=== PATIENT | male | born 1985 | race African-American/Black ===

== ENCOUNTER 2016-05-23 18:06 | Emergency (ER) ==
[2016-05-23 18:08] VITALS: BP 127/80
[2016-05-23] MEDS ORDERED: DECADRON IM ONE (18:35)
[2016-05-23] MEDS ORDERED: DUONEB (A & A) INH ONE (18:35)
--- NOTE | 2016-05-23 18:42 | PROVIDER DOCUMENTATION ---
HPI-Respiratory General - General Chief Complaint: Asthma Attack Stated Complaint: ASTHMA ATTACK Time Seen by Provider: 05/23/16 18:19 Source: patient Allergies/Adverse Reactions: Patient Allergies Allergy/AdvReac Type Severity Reaction Status Date / Time No Known Allergies Allergy Verified 05/23/16 18:20 Home Medications: Home Medication List Medication Instructions Recorded Confirmed Last Taken Type Albuterol Sulfate Inhaler 2 puff INH Q6H PRN PRN 05/23/16 05/23/16 Unknown History [Ventolin Hfa] Albuterol Sulfate Inhaler 2 puff INH Q6H PRN PRN #1 inhaler 05/23/16 Unknown Rx [Ventolin Hfa] Albuterol [Albuterol Neb] 2.5 mg INH [id number] 05/23/16 05/23/16 Unknown History Prednisone 20 mg PO DAILY #15 tablet 05/23/16 Unknown Rx - History of Present Illness-Resp Nature of Presenting Problem: 30 y/o BM c/o wheezing x 1 day. Pt states that he has been out in the cold all day and reports exacerbation of his asthma. States started at 7 AM, but didn't want to come to the ED. States no other sxs other than stress today. States hungry. Review of Systems - Adult - REVIEW OF SYSTEMS - ADULT Constitutional: reports: no symptoms reported. denies: chills, fever Eyes: reports: no symptoms reported. denies: blurred vision, double vision Ears, Nose, Mouth & Throat: reports: no symptoms reported. denies: ear pain, nose pain Cardiovascular: reports: no symptoms reported. denies: chest pain, palpitations Respiratory: reports: see HPI, shortness of breath, wheezing. denies: cough Gastrointestinal: reports: no symptoms reported. denies: abdominal pain, nausea , vomiting Genitourinary: reports: no symptoms reported. denies: dysuria, frequency Musculoskeletal: reports: no symptoms reported. denies: joint pain, joint swelling Integumentary: reports: no symptoms reported. denies: nail changes, rash Neurological: reports: no symptoms reported. denies: numbness, paresthesia Psychiatric: reports: no symptoms reported Endocrine: reports: no symptoms reported. denies: cold intolerance, heat intolerance Hematologic/Lymphatic: reports: no symptoms reported. denies: easy bruising, prolonged bleeding Allergic/Immunologic: reports: no symptoms reported All Other Systems: Reviewed and Negative Past History - Adult - PAST MEDICAL HISTORY-ADULT Review of Records: reports: Nursing Assessment Review, Medications Reviewed - SOCIAL HISTORY Smoking: cigarettes Alcohol Use Frequency: 5-6 times a week Living Situation: homeless Physical Exam-General - PHYSICAL EXAM-ADULT Initial Vital Signs Reviewed: Yes - CONSTITUTIONAL General Appearance: alert, mild distress - EYES Eyes: pink conjunctivae - HEAD, EARS, NOSE, MOUTH & THROAT HENMT: normocephalic/atraumatic, moist mucous membranes, pharynx normal - NECK Neck: supple, normal inspection. negative: lymphadenopathy - RESPIRATORY Respiratory: no respiratory distress, crackles, wheezing. negative: pain on inspiration, plerual rub - CARDIOVASCULAR Cardiovascular: regular rate, rhythm. negative: bradycardia, tachycardia - GASTROINTESTINAL (ABDOMEN) Abdominal Exam: normal bowel sounds - MUSCULOSKELETAL Extremity: normal gait - SKIN Integumentary: normal color, normal turgor, warm/dry - NEUROLOGIC Neurologic: negative: aphasia - PSYCHIATRIC Psych/Mental Status: normal mood/affect, normal thought content, normal thought process, oriented x 3 Progress - PLAN OF CARE/RESULTS Progress/Plan/Lab Results: Pt refused CXR. Departure - Departure Time of Disposition Order: 18:46 DIAGNOSIS: Asthma Qualifiers: Asthma severity: unspecified severity Asthma complication type: uncomplicated Qualified Code(s): J45.909 - Unspecified asthma, uncomplicated Hungry Qualifiers: Encounter type: initial encounter Qualified Code(s): T73.0XXA - Starvation, initial encounter Disposition: HOME 01 Certified Medical Emergency: Emergent Condition: Stable Additional Instructions: Take medications as directed. Follow up with PCP as needed. Find nearest homeless snf. ED Follow Up Instructions: You have been treated by a care provider in the Emergency Department. These instructions are being provided to you so you can have an understanding of how to care for yourself upon discharge. Upon discharge from the Emergency Department, you are responsible for making arrangements for follow-up care by a physician of your choice. Take all prescribed medications as directed. Return to the Emergency Department immediately for any new or worsening symptoms. You may call the Physician Referral phone number at [phone] to obtain a list of Physicians who are taking new patients. Prescriptions: Prednisone 20 mg PO DAILY #15 tablet Albuterol Sulfate Inhaler [Ventolin Hfa] 2 puff INH Q6H PRN PRN #1 inhaler PRN Reason: Shortness Of Breath [facility]: [facility] [NON-STAFF[facility] - Attestation - Physician/ VIVI Attestation Patient care was provided by Advanced Practice Provider:: Yes Advanced Practice Provider:: Barbara Lopez Advanced Practice Provider documentation review:: The Mid-level provider documentation, treatment plan and medical decision making was reviewed by the physician who agrees with all treatment and medical decision making by the MLP.
== END 2016-05-23 19:33 | disposition home or self-care (01) ==
LOC: EDBD → ED 18:06
DX: J45.909 Unspecified asthma, uncomplicated (principal); R06.2 Wheezing; R06.02 Shortness of breath; F17.210 Nicotine dependence, cigarettes, uncomplicated; Z79.899 Other long term (current) drug therapy

== ENCOUNTER 2016-10-04 09:56 | Inpatient (IN) ==
[2016-10-04] MEDS ORDERED: SOLU-MEDROL IV ONE (10:15)
[2016-10-04] MEDS ORDERED: SOLU-MEDROL ONE (10:16)
[2016-10-04 10:26] LABS: BE -0.5 mmoll (-3.0-3.0); BLOOD TYPE ARTERIAL; DRAW SITE R RADIAL; METHB 0.9 % (0.0-1.5); O2(CT) 19.5 mL/dL (15.0-23.0); PCO2(98.6) 39 mmHg (35-45); PO2(98.6) 67 mmHg (60-100); SAMPLE BLOOD; SAO2 96.7 % (95.0-100.0); THB 14.8 g/dL (11.5-17.4)
[2016-10-04 10:34] LABS: ALLEN TEST YES; MODALITY ROOM AIR
[2016-10-04] MEDS ORDERED: DUONEB (A & A) INH ONE ×2 (11:56→12:30)
--- NOTE | 2016-10-04 12:52 | Diag Imaging Result Doc PS360 ---
EXAM: CHEST-2 VIEWS - 10/04/2016 HISTORY: sob TECHNIQUE: Chest two views COMPARISON: 09/07/2016 FINDINGS: Heart size is normal. The lungs are possibly mildly hyperexpanded, similar to the previous exam, but appear clear. There is no consolidation, pleural effusion, or pneumothorax identified. IMPRESSION: Possible mildly hyperexpanded lungs. No other evidence of acute disease. Electronically signed by Crispin Zhao 10/04/2016 12:49 PM
[2016-10-04] MEDS ORDERED: MAGNESIUM SULFATE 1 GM/D5W 1 GM/100 ML IVPB IV ONE (13:25)
[2016-10-04] MEDS ORDERED: MAGNESIUM SULFATE 1 GM/D5W 1 GM/100 ML IVPB ONE (13:25)
[2016-10-04 15:51] LABS: BE -0.2 mmoll (-3.0-3.0); BLOOD TYPE ARTERIAL; DRAW SITE R RADIAL; METHB 1.3 % (0.0-1.5); O2(CT) 20.1 mL/dL (15.0-23.0); PCO2(98.6) 37 mmHg (35-45); PO2(98.6) 68 mmHg (60-100); SAMPLE BLOOD; SAO2 97.9 % (95.0-100.0); THB 15.1 g/dL (11.5-17.4); pH(98.6) 7.42 (7.35-7.45)
[2016-10-04 15:53] LABS: ALLEN TEST YES; MODALITY ROOM AIR
[2016-10-04] MEDS ORDERED: TYLENOL PO PRN (16:16)
[2016-10-04] MEDS ORDERED: DUONEB (A & A) INH PRN (16:20)
[2016-10-04 16:24] LABS: MANUAL DIFF NEEDED? NO
[2016-10-04 16:41] LABS: BASO% 0.3 % (0.0-0.8); EOS# 0.37 X1000 (0.0-0.7); EOS% 3.9 % (0.0-10.0); HEMATOCRIT 45.2 % (42.0-52.0); HEMOGLOBIN 15.6 g/dL (14.0-18.0); IMM GRAN# 0.02 X1000 (0.0-0.04); IMM GRAN% 0.2 % (0.0-0.5); LYMPH# 1.48 X1000 (1.2-3.4); LYMPH% 15.5 % (20.5-51.1); MCH 30.1 PG (27-31); MCHC 34.5 g/dL (33-37); MCV 87.3 FL (81-99); MONO# 1.08 X1000 (0.11-0.59); MONO% 11.3 % (1.7-9.3); NEUT% 68.8 % (42.2-75.2); PLT 226 X1000 (130-400); RBC 5.18 XMIL (4.7-6.1)
[2016-10-04 16:48] LABS: AGAP 15; BUN 16 mg/dL (8-22); CALCIUM 9.4 mg/dL (8.8-10.2); CHLORIDE 100 mmol/L (98-107); COSMO 276; POTASSIUM 3.6 mmol/L (3.5-5.1); SODIUM 138 mmol/L (136-145); TCO2 24 mmol/L (25-35)
[2016-10-04] MEDS: SOLU-MEDROL IV SCH (18:11)
[2016-10-04] MEDS: LOVENOX SUBQ SCH (18:12)
[2016-10-04] MEDS: DUONEB (A & A) INH SCH ×2 (19:07→22:50)
--- NOTE | 2016-10-04 19:39 | HISTORY AND PHYSICAL ---
CHIEF COMPLAINT: Shortness of breath. HISTORY OF PRESENT ILLNESS: A 30-year-old male with a past medical history of asthma and eczema, came to the emergency department with a chief complaint of shortness of breath, that started yesterday in the morning, associated with cough, chills and subjective fever. Also as per the patient, he has been having loose stools, but that only happened yesterday 5 times, but not today. He states that he used albuterol at home, but the symptoms were about the same. He decided to come to the emergency department because of worsening of his symptoms. PAST MEDICAL HISTORY: Asthma and eczema. PAST SURGICAL HISTORY: None. PAST FAMILY HISTORY: Grandmother with coronary artery disease. PAST SOCIAL HISTORY: He is a smoker, apparently he smokes just 2 cigarettes per day since age 12. He drinks socially once a month. No drugs. He used to work as a cook. He is still single. DRUG ALLERGIES: None. HOME MEDICATIONS: Albuterol inhaler and nebulizer. No blood transfusions before. PHYSICAL EXAMINATION: VITAL SIGNS: Temperature 98.4 degrees, pulse 86, respiratory rate 19, O2 saturation 96% on 2 L of nasal cannula. HEENT: Head normocephalic. No trauma. PERRLA. NECK: Supple. No JVD. No masses. Central trachea. CHEST: Decreased breath sounds globally with scattered crackles and wheezing. Expiratory wheezes. ABDOMEN: Soft, nontender, nondistended. No hepatosplenomegaly. EXTREMITIES: No edema. No clubbing. No cyanosis. NEUROLOGICAL: The patient is alert and oriented x3. No focal deficits. LABORATORY: Pending lab work. ASSESSMENT AND PLAN: 1. Asthma exacerbation. He received multiple breathing treatments and steroids, but he is still coughing and having shortness of breath. He seems to be in mild to moderate respiratory distress. I will start this patient on scheduled breathing treatment and steroids. 2. Tobacco abuse. This patient has been highly advised against tobacco use. I will continue with daily cessation education. 3. Deep vein thrombosis prophylaxis with Lovenox. cc: Chuck Schneider MD
[2016-10-05] MEDS: DUONEB (A & A) INH SCH ×5 (03:01→19:07)
[2016-10-05] MEDS: SOLU-MEDROL IV SCH ×4 (03:04→16:32)
[2016-10-05 05:42] LABS: BE 1.5 mmoll (-3.0-3.0); BLOOD TYPE ARTERIAL; DRAW SITE R RADIAL; METHB 0.9 % (0.0-1.5); O2(CT) 16.6 mL/dL (15.0-23.0); PCO2(98.6) 30 mmHg (35-45); PO2(98.6) 190 mmHg (60-100); SAMPLE BLOOD; SAO2 99.6 % (95.0-100.0); THB 11.8 g/dL (11.5-17.4); pH(98.6) 7.51 (7.35-7.45)
[2016-10-05 05:43] LABS: ALLEN TEST YES; MODALITY ROOM AIR
[2016-10-05 07:06] LABS: BASO% 0.1 % (0.0-0.8); HEMATOCRIT 40.3 % (42.0-52.0); HEMOGLOBIN 13.9 g/dL (14.0-18.0); IMM GRAN# 0.01 X1000 (0.0-0.04); IMM GRAN% 0.1 % (0.0-0.5); LYMPH# 0.61 X1000 (1.2-3.4); LYMPH% 7.1 % (20.5-51.1); MANUAL DIFF NEEDED? YES; MCH 29.7 PG (27-31); MCHC 34.5 g/dL (33-37); MCV 86.1 FL (81-99); MONO# 0.39 X1000 (0.11-0.59); MONO% 4.5 % (1.7-9.3); MPV 11.9 FL (7.4-10.4); NEUT% 88.2 % (42.2-75.2); PLT 230 X1000 (130-400); RBC 4.68 XMIL (4.7-6.1)
[2016-10-05 08:00] LABS: AGAP 13; BUN 15 mg/dL (8-22); CALCIUM 9.8 mg/dL (8.8-10.2); CHLORIDE 102 mmol/L (98-107); COSMO 278; POTASSIUM 4.3 mmol/L (3.5-5.1); SODIUM 138 mmol/L (136-145); TCO2 23 mmol/L (25-35)
[2016-10-05 08:27] LABS: BANDS 1 % (0-1); LYMPHS 10 % (21-51); MONO 1 % (1-9)
--- NOTE | 2016-10-05 15:12 | PROGRESS NOTE ---
DATE: 10/05/2016 SUBJECTIVE: She is complaining of less shortness of breath. She is becoming resistive to care and belligerent at times. She either does not answer or she mumbles answers to all staff. OBJECTIVE: Vital Signs: Blood pressure is 112/69, with a heart rate of 96, respirations are 16, temperature is 98.5 degrees oral, with room air saturations of 97-100%. Cardiovascular: Regular rate and rhythm. S1 and S2 are appreciated. Pulmonary: She does have some scattered wheezes throughout with no increased work of breathing noted. Gastrointestinal: Abdomen is soft, nontender, nondistended with bowel sounds in all 4 quadrants. Extremities: No clubbing, cyanosis, or edema. Calves are nontender. Pulses are palpable x4. Neurologic: She is alert and oriented x3. Labs: WBC is 8.6, with hemoglobin 13.9, hematocrit 40.3, and platelets of 230,000. Sodium is 138, potassium 4.3, BUN 15, creatinine 0.9, with a glucose of 119. ASSESSMENT AND PLAN: Asthma exacerbation. We will continue with current breathing treatments and steroids. We will use Lovenox for deep venous thrombosis prophylaxis. Dictated by MYNOR Tinoco for Hany Julian MD cc: MYNOR Tinoco MD
[2016-10-05] MEDS: LOVENOX SUBQ SCH (16:32)
[2016-10-05] MEDS ORDERED: RESTORIL PO PRN (21:50)
[2016-10-06] MEDS: DUONEB (A & A) INH SCH ×7 (00:08→23:32)
[2016-10-06] MEDS: SOLU-MEDROL IV SCH ×3 (00:28→16:44)
[2016-10-06 06:59] LABS: MCHC 34.1 g/dL (33-37); MPV 12.2 FL (7.4-10.4); RBC 4.66 XMIL (4.7-6.1)
[2016-10-06 07:14] LABS: AGAP 11; ALKALINE PHOSPHATASE 42 U/L (32-122); BUN 12 mg/dL (8-22); CALCIUM 9.9 mg/dL (8.8-10.2); CHLORIDE 104 mmol/L (98-107); COSMO 278; GOT 14 U/L (10-34); GPT 15 U/L (10-44); POTASSIUM 4.2 mmol/L (3.5-5.1); SODIUM 139 mmol/L (136-145); TCO2 24 mmol/L (25-35); TOTAL BILIRUBIN < 0.15 mg/dL (0.20-1.00); TOTAL PROTEIN 6.6 g/dL (6.3-8.3)
--- NOTE | 2016-10-06 11:21 | PROGRESS NOTE ---
DATE: 10/06/2016 SUBJECTIVE: Patient states that he is actually starting to breathe a little bit easier today. He denies any chest pains or palpitations. States he is not sleeping well secondary to his shortness of breath. He is still coughing and wheezing. PHYSICAL EXAMINATION: Vital Signs: Temperature 98, pulse rate 75, respiratory rate 18, BP 110/67, saturation 100% on room air. General: Patient is awake, alert. He is currently in mild respiratory distress which is improved from yesterday's moderate respiratory distress. HEENT: Normocephalic and atraumatic. PERRL. Neck: Supple. CV: Regular rate. Chest: Decreased breath sounds. Positive wheezing but less harsh than yesterday. Extremities: Moves all extremities. Neurologic: No focal changes. Skin: Warm and dry. No rashes. ASSESSMENT: 1. Asthma exacerbation. We will continue Solu-Medrol today at 40 intravenous every 8 hours. We will not decrease. We will continue his breathing treatments every 4 hours with every 2 hours as needed. We will add Advair 250. 2. Chronic tobacco abuse. Again, discussed with the patient the perils of smoking and that this will increase his asthma exacerbation. 3. Insomnia. The patient is improving on Restoril. PLAN: As noted, we will not change medications today with the exception of the addition of Advair. cc: Hany Julian MD
[2016-10-06] MEDS: ADVAIR 250/50 DISKUS INH SCH ×2 (11:34→19:29)
[2016-10-06] MEDS: LOVENOX SUBQ SCH (16:44)
[2016-10-07] MEDS: SOLU-MEDROL IV SCH ×3 (00:47→20:40)
[2016-10-07] MEDS: DUONEB (A & A) INH SCH ×5 (03:04→19:51)
[2016-10-07] MEDS: ADVAIR 250/50 DISKUS INH SCH ×2 (08:05→19:51)
[2016-10-07] MEDS: OMNICEF PO SCH ×2 (09:14→20:38)
--- NOTE | 2016-10-07 09:21 | PROGRESS NOTE ---
DATE: 10/07/2016 SUBJECTIVE: The patient still has multiple complaints. Denies any chest pain, palpitations. Denies any GI or issues. He has not been getting out of bed secondary to shortness of breath. OBJECTIVE: Vital Signs Reviewed: Temperature 98 degrees, pulse 76, respiratory rate 18, BP 129/70, satting 96% on room air. General: Patient is awake, alert, currently in mild respiratory distress. He is very difficult to get to answer questions, but appears to be better than yesterday. Clinically he is improved from lung exam over yesterday's exam. HEENT: Normocephalic, atraumatic. Neck: Supple. CV: Regular rate. Chest: Positive wheezing. Certainly worsens with forced expiration. Abdomen: Soft. Extremities: Moves all extremities. Neurologic: No changes. LABS: No current labs today. ASSESSMENT: 1. Leukocytosis, more likely secondary to steroid effect as he is clinically improving. 2. Asthma exacerbation. Clinically improving. Will continue treatments. We will add Omnicef. Continue steroids. We will check a chest x-ray today. Check labs in the morning and hopefully home in the morning. cc: Hany Julian MD
--- NOTE | 2016-10-07 09:50 | Diag Imaging Result Doc PS360 ---
EXAM: CHEST-2 VIEWS HISTORY: hypoxia TECHNIQUE: COMPARISON: 10/04/2016 FINDINGS: The lungs are well expanded. The heart is not enlarged. The vessels are not distended. There are no infiltrates. No pleural effusions. IMPRESSION: No acute abnormality. Electronically signed by Jacob Beasley 10/07/2016 9:48 AM
[2016-10-07] MEDS: ZITHROMAX PO SCH (11:08)
[2016-10-07] MEDS: LOVENOX SUBQ SCH (15:46)
[2016-10-08] MEDS: DUONEB (A & A) INH SCH ×3 (04:06→12:14)
[2016-10-08 05:20] LABS: HEMATOCRIT 41.5 % (42.0-52.0); HEMOGLOBIN 13.8 g/dL (14.0-18.0); MCH 29.7 PG (27-31); MCHC 33.3 g/dL (33-37); MCV 89.2 FL (81-99); MPV 11.5 FL (7.4-10.4); RBC 4.65 XMIL (4.7-6.1)
[2016-10-08 05:52] LABS: AGAP 9; ALBUMIN 3.9 g/dL (3.5-5.0); ALKALINE PHOSPHATASE 44 U/L (32-122); BUN 19 mg/dL (8-22); CHLORIDE 104 mmol/L (98-107); COSMO 282; GOT 12 U/L (10-34); GPT 25 U/L (10-44); POTASSIUM 4.5 mmol/L (3.5-5.1); SODIUM 139 mmol/L (136-145); TCO2 27 mmol/L (25-35); TOTAL BILIRUBIN < 0.15 mg/dL (0.20-1.00); TOTAL PROTEIN 6.4 g/dL (6.3-8.3)
[2016-10-08] MEDS: ZITHROMAX PO SCH (08:54)
[2016-10-08] MEDS: OMNICEF PO SCH (08:54)
[2016-10-08] MEDS: SOLU-MEDROL IV SCH (08:54)
[2016-10-08 11:56] VITALS: BP 127/62
--- NOTE | 2016-10-10 08:29 | DISCHARGE SUMMARY ---
ADMISSION DATE: 10/04/2016 DISCHARGE DATE: 10/08/2016 DIAGNOSES: 1. Asthma exacerbation, resolved. 2. Leukocytosis, resolving. This is most likely secondary to steroid use. DIAGNOSTICS: On 10/04/2016, chest x-ray revealed possible mildly hyperexpanded lungs with no evidence of acute disease. Repeat chest x-ray 10/07/2016 revealed no acute abnormality. Lungs are well expanded. Heart is not enlarged. Vessels are not distended. No infiltrates. HOSPITAL COURSE: Mr. Gutierrez presented to the emergency room having shortness of breath. He was found to have an exacerbation of his asthma. He received DuoNebs, steroids to taper, supplemental oxygen, as well as antibiotic coverage of Omnicef and Zithromax. He did improve and is able to be discharged today. DISCHARGE PHYSICAL EXAMINATION: Cardiovascular: Regular rate and rhythm. S1 and S2 are appreciated. Pulmonary: Breath sounds with some scattered wheezes but much less than on admission. Chest does rise and fall symmetrically with respiration. Gastrointestinal: Abdomen is soft, nontender, nondistended. Bowel sounds in all 4 quadrants. Extremities: No clubbing, cyanosis, or edema. Calves are nontender. Pulses are palpable x4. DISCHARGE MEDICATIONS: Medrol Dosepak as directed, DuoNebs q.6 hours as needed, Zithromax 500 mg daily for 7 days, Omnicef. FOLLOWUP: He needs to follow up with his primary care physician in the next 1-2 weeks, sooner if needed. He is being discharged home in stable condition with family members. TIME SPENT: This is a greater than 30 minute discharge. Dictated by MYNOR Tinoco for Hany Julian MD cc: MYNOR Tinoco MD
--- NOTE | 2016-10-18 16:27 | PROVIDER DOCUMENTATION ---
This chart was entered by Vandana Bush Scribe, acting as scribe for Jeffrey Ramirez MD. HPI-Respiratory General - General Chief Complaint: Asthma Attack Stated Complaint: asthma Time Seen by Provider: 10/04/16 10:22 Source: patient Allergies/Adverse Reactions: Patient Allergies Allergy/AdvReac Type Severity Reaction Status Date / Time No Known Allergies Allergy Verified 10/04/16 10:04 Home Medications: Home Medication List Medication Instructions Recorded Confirmed Last Taken Type Hydroxyzine Pamoate [Vistaril] 25 mg PO BID #20 capsule 09/02/16 Unknown Rx Triamcinolone 0.1% Oint [Kenalog 1 applicatn TOP TID #2 tube 09/02/16 Unknown Rx 0.1% Ointment] Albuterol Sulfate Inhaler 2 puff INH Q6H PRN #1 inhaler 10/08/16 Unknown Rx [Ventolin Hfa] Azithromycin [Zithromax] 500 mg PO DAILY #1 packet 10/08/16 Unknown Rx Ipratropium/Albuterol Sulfate 3 ml IH Q6H PRN PRN #30 units 10/08/16 Unknown Rx [Iprat-Albut 0.5-3(2.5) mg/3 ml] Methylprednisolone [Medrol Dosepak] 4 mg PO DIRECTED #1 package 10/08/16 Unknown Rx - History of Present Illness-Resp Nature of Presenting Problem: 30 year old male presents to the ER via EMS with complaint of asthma attack 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 Pt states he does not have maintenance medication for asthma and just uses albuterol. Onset/Duration: reports: just prior to arrival Timing: reports: still present Current Respiratory Medication Therapy: Initiated albuterol/atrovent inhale Review of Systems - Adult - REVIEW OF SYSTEMS - ADULT Constitutional: denies: chills, fever Eyes: reports: no symptoms reported Ears, Nose, Mouth & Throat: reports: no symptoms reported Cardiovascular: reports: no symptoms reported Respiratory: reports: shortness of breath, wheezing Gastrointestinal: reports: no symptoms reported Genitourinary: reports: no symptoms reported Musculoskeletal: reports: no symptoms reported Integumentary: reports: no symptoms reported Neurological: reports: no symptoms reported Psychiatric: reports: no symptoms reported Endocrine: reports: no symptoms reported Hematologic/Lymphatic: reports: no symptoms reported Allergic/Immunologic: reports: no symptoms reported All Other Systems: Reviewed and Negative Past History - Adult - PAST MEDICAL HISTORY-ADULT Review of Records: reports: Nursing Assessment Review, Medications Reviewed Major Childhood Illnesses: reports: denies history Cardiovascular: reports: denies history Respiratory: reports: asthma Gastrointestinal: reports: denies history Obstetrical/Gynecological: reports: denies history Genitourinary: reports: denies history Musculoskeletal: reports: denies history Neurological: reports: denies history Endocrine/Immune: reports: denies history Other Conditions: reports: denies history - PRIOR SURGERIES/PROCEDURES Surgical/Procedure History: reports: reviewed, not pertinent - IMMUNIZATION STATUS Childhood Immunizations: See Nurse Assessment Flu Vaccine: See Nurse Assessment - FAMILY HISTORY Family History: reviewed, not pertinent Physical Exam-General - CONSTITUTIONAL General Appearance: alert, no apparent distress - EYES Eyes: PERRL/EOMI, pink conjunctivae - HEAD, EARS, NOSE, MOUTH & THROAT HENMT: normocephalic/atraumatic, moist mucous membranes - NECK Neck: non-tender, normal inspection - RESPIRATORY Respiratory: decreased breath sounds, accessory muscle use, wheezing - CARDIOVASCULAR Cardiovascular: normal peripheral pulses, regular rate, rhythm - MUSCULOSKELETAL Back Exam: no CVA tenderness, no vertebral tenderness Extremity: non-tender, normal inspection - SKIN Integumentary: normal color, warm/dry - NEUROLOGIC Neurologic: grossly normal, no motor/sensory deficits - PSYCHIATRIC Psych/Mental Status: normal mood/affect, normal thought content, normal thought process, oriented x 3 Progress - PLAN OF CARE/RESULTS Progress/Plan/Lab Results: Orders Category Date Time Status Admit - [facility] Routine AdmDCTranf 10/04/16 16:16 Ordered Activity - Up with Assistance ORDERED Care 10/04/16 16:16 Inactive Intake and Output-Strict ORDERED Care 10/04/16 16:16 Inactive Vital Signs Order Q 8-HR ASSESS Care 10/04/16 16:16 Inactive Z-Document. for Tele Applied ORDERED Care 10/04/16 16:18 Inactive Regular Diet Diet 10/04/16 16:19 Completed CHEST-2 VIEWS [RAD] Stat Exams 10/04/16 10:32 Completed ABG [RESP] Routine Lab 10/04/16 10:00 Completed ABG [RESP] Routine Lab 10/04/16 15:11 Completed ABG [RESP] Routine Lab 10/05/16 05:21 Completed BASIC METABOLIC PANEL [CHEM] Routine Lab 10/05/16 05:26 Completed BASIC METABOLIC PANEL [CHEM] Stat Lab 10/04/16 10:05 Completed CBC WITH DIFF [HEME] Routine Lab 10/05/16 05:26 Completed CBC WITH DIFF [HEME] Stat Lab 10/04/16 10:05 Completed Acetaminophen [Tylenol] Med 10/04/16 16:16 Discontinued 650 mg PO Q6H PRN PRN Albuterol 2.5MG/Ipratrop 0.5MG [Duoneb (A & A)] Med 10/04/16 11:56 Discontinued 3 ml INH NOW ONE Albuterol 2.5MG/Ipratrop 0.5MG [Duoneb (A & A)] Med 10/04/16 12:30 Discontinued 3 ml INH NOW ONE Albuterol 2.5MG/Ipratrop 0.5MG [Duoneb (A & A)] Med 10/04/16 16:20 Discontinued 3 ml INH Q2H PRN PRN Albuterol 2.5MG/Ipratrop 0.5MG [Duoneb (A & A)] Med 10/04/16 19:30 Discontinued 3 ml INH RTQ4H Enoxaparin [Lovenox] Med 10/04/16 16:30 Discontinued 40 mg SUBQ Q24H Magnesium Sulfate 1 gm/D5w Med 10/04/16 13:25 Discontinued 1 gm in 100 ml .ROUTE As Directed Magnesium Sulfate 1 gm/D5w Med 10/04/16 13:25 Discontinued 1 gm in 100 ml IV NOW Methylprednisolone Sod Succ [Solu-Medrol] Med 10/04/16 10:16 Discontinued 125 mg .ROUTE .STK-MED ONE Methylprednisolone Sod Succ [Solu-Medrol] Med 10/04/16 10:15 Discontinued 125 mg IV NOW ONE Methylprednisolone Sod Succ [Solu-Medrol] Med 10/04/16 16:30 Discontinued 40 mg IV Q8H Aerosol Treatments Routine Oth 10/04/16 11:57 Completed Aerosol Treatments Routine Oth 10/04/16 16:21 Completed Aerosol Treatments Stat Oth 10/04/16 11:57 Completed Aerosol Treatments Stat Oth 10/04/16 12:30 Completed Aerosol Treatments Stat Oth 10/04/16 16:21 Completed Oxygen Device Routine Oth 10/04/16 16:16 Completed Transfer/Admit Order [TRANSFER] Routine Transfer 10/04/16 16:15 Completed Result Diagrams: 10/08/16 04:59 10/08/16 04:59 Departure - Departure Date of Disposition Decision: 10/04/16 Time of Disposition Decision: 13:00 DIAGNOSIS: Asthma exacerbation Disposition: ADMITTED INPATIENT 09 Certified Medical Emergency: Emergent Condition: Stable - Critical Care Note This patient required my direct & personal management of CC.: No This chart was documented by the indicated scribe, (Vandana Bush, Scribe) and accurately reflects the services I performed and decisions made by me, Jeffrey Ramirez MD, as attested by the provider's signature.
== END 2016-10-08 15:35 | disposition home or self-care (01) ==
LOC: P.MEDSURG 09:56 → P.ED 09:56 → SUATTDRO 16:33 → OBSVTOIN 16:33 → P.MEDSURG 17:22
PROVIDERS: ATTEND Family Medicine

== ENCOUNTER 2019-07-03 15:06 | Inpatient (IN) ==
[2019-07-03] MEDS ORDERED: BENADRYL IV ONE (15:16)
[2019-07-03] MEDS ORDERED: SOLU-MEDROL IV ONE (15:18)
[2019-07-03] MEDS ORDERED: VENTOLIN HFA INH ONE ×2 (15:18→15:55)
[2019-07-03 15:41] LABS: BASO# 0.08 X1000 (0.0-0.2); EOS# 0.88 X1000 (0.0-0.7); HEMOGLOBIN 15.1 g/dL (14.0-18.0); IMM GRAN# 0.01 X1000 (0.0-0.04); IMM GRAN% 0.1 % (0.0-0.5); LYMPH# 2.39 X1000 (1.2-3.4); LYMPH% 29.8 % (20.5-51.1); MCH 29.4 PG (27-31); MCHC 33.6 g/dL (33-37); MCV 87.5 FL (81-99); MONO# 0.67 X1000 (0.11-0.59); MONO% 8.4 % (1.7-9.3); MPV 11.8 FL (7.4-10.4); NEUT# 3.99 X1000 (1.4-6.5); NEUT% 49.7 % (42.2-75.2); PLT 315 X1000 (130-400); RBC 5.14 XMIL (4.7-6.1); RDW 12.9 % (11.5-14.5); WBC 8.02 X1000 (4.8-10.8)
[2019-07-03 15:50] LABS: AGAP 15; BUN 13 mg/dL (8-22); CALCIUM 10.4 mg/dL (8.8-10.2); CHLORIDE 105 mmol/L (98-107); COSMO 287; CREATININE 1.3 mg/dL (0.7-1.2); ESTIMATED GFR > 60; GLUCOSE 102 mg/dL (70-104); POTASSIUM 4.5 mmol/L (3.5-5.1); SODIUM 144 mmol/L (136-145); TCO2 24 mmol/L (25-35)
--- NOTE | 2019-07-03 15:55 | Diag Imaging Result Doc PS360 ---
EXAM: CHEST-PORTABLE 07/03/2019 HISTORY: cough,wheeze TECHNIQUE: Erect AP portable at 1431 COMMENT: There is no evidence of acute cardiac or pulmonary disease. Compared to the previous study of 05/08/2019 there has been no significant change. IMPRESSION: No evidence of acute disease. Electronically signed by Linden Allen 07/03/2019 3:53 PM
[2019-07-03 15:59] LABS: INFLUENZA A NEGATIVE (NEGATIVE); INFLUENZA B NEGATIVE (NEGATIVE)
[2019-07-03] MEDS ORDERED: TYLENOL PO PRN (18:34)
[2019-07-03] MEDS ORDERED: ZOFRAN IV PRN (18:34)
[2019-07-03] MEDS ORDERED: DUONEB (A & A) INH SCH (19:30)
[2019-07-03] MEDS: ZYPREXA PO SCH (21:51)
[2019-07-03] MEDS: NS 1,000 ML IV SCH (21:58)
--- NOTE | 2019-07-03 22:50 | HISTORY AND PHYSICAL ---
CHIEF COMPLAINT: Shortness of breath. HISTORY OF PRESENT ILLNESS: The patient is a 39-year-old male who presented to the emergency department with a very difficult historian. He initially states he has been short of breath his whole life. Although, somewhat difficult, he does seem to clarify that to the past few days he has had shortness of breath with increased cough, congestion and shortness of breath. ALLERGIES: No known drug allergies. MEDICATIONS: Celexa, Zyprexa, albuterol, and Singulair. PAST MEDICAL HISTORY: Significant for asthma, bipolar depression with schizophrenia. SURGICAL HISTORY: None. REVIEW OF SYSTEMS: Patient denies any fevers, chills. Does have cough that is nonproductive, increased shortness of breath, wheezing. Denies any headaches, blurred vision, change in vision. Denies any dysuria, frequency, urgency. Denies sore throat, nasal congestion. Denies any swelling in the lower extremities. FAMILY HISTORY: Noncontributory. SOCIAL HISTORY: The patient has a long history of smoking; although, states he does not currently smoke, drink or use illicit substances. PHYSICAL EXAMINATION: VITAL SIGNS: Reviewed. Temp 98 degrees, pulse 101, respiratory 16, BP 117/83, sat 92 to 95 percent on 2 L. GENERAL: Patient is awake. He is in minimal distress currently. HEENT: Normocephalic. NECK: Supple. CARDIOVASCULAR: Regular rate. No murmurs. CHEST: Positive harsh wheezing throughout. EXTREMITIES: Moves all extremities. NEUROLOGIC: No focal changes. ASSESSMENT: 1. Asthma with acute exacerbation. 2. Schizophrenia. 3. Bipolar depression. PLAN: We are going to admit the patient in the hospital. He did have some mild hypoxemia upon initial presentation to the ER at 89%, currently 94% on 2 L. Moderate wheezing has improved. We will admit to the hospital. Solu-Medrol, oxygen, breathing treatments and antibiotics and we will follow. cc: Hany Julian MD
[2019-07-03] MEDS ORDERED: VENTOLIN HFA INH PRN (23:00)
[2019-07-03] MEDS: SOLU-MEDROL IV SCH (23:40)
[2019-07-04] MEDS: SINGULAIR PO SCH (09:51)
[2019-07-04] MEDS: CELEXA PO SCH (09:51)
[2019-07-04] MEDS: SOLU-MEDROL IV SCH (09:52)
[2019-07-04] MEDS: NS 1,000 ML IV SCH (09:52)
[2019-07-04] MEDS ORDERED: PREDNISONE PO ONE (14:09)
--- NOTE | 2019-07-04 14:24 | PROGRESS NOTE ---
DATE: 07/04/2019 SUBJECTIVE: Patient has no major complaints. OBJECTIVE: Vital Signs: Blood pressure 104/64, heart rate 71, respiratory rate of 16, temperature 97.6 degrees, 98% on room air. Cardiovascular: Regular rate and rhythm. Pulmonary: Bilateral breath sounds, clear to auscultation. He still has wheezing, although it does not sound quite as bad as it has previously, well again comparatively from the documentation yesterday. It sounds like he had significant wheezing. No fevers overnight. GI: Soft, nontender, nondistended. Bowel sounds are positive. LABORATORY DATA: I do not have any new data. PROBLEM LIST: 1. Asthma exacerbation. We will continue breathing treatments. I am going to switch him to steroids. His IV is out. He has refused some of his treatments, unclear why. He does have underlying psychiatric issues, but we are looking at trying to get some assistance there. We will put him on some azithromycin. He is being ruled out for COVID-19, although at this point, his x-ray is clear. He is afebrile. I am not quite sure where that came from, I guess he was hypoxic, although I do not think he is now. In any case, hopefully, we can discharge him soon. 2. Schizophrenia. He is taking his medications, but he is not cooperating with all treatments. I think if he is stable tomorrow, anticipate he could go home. cc: Mannie Villarreal MD
[2019-07-04] MEDS: VENTOLIN HFA INH SCH ×2 (14:56→20:40)
[2019-07-04] MEDS: ZYPREXA PO SCH (20:25)
[2019-07-05] MEDS: VENTOLIN HFA INH SCH ×4 (03:31→20:16)
[2019-07-05] MEDS ORDERED: DOXYCYCLINE PO SCH (09:00)
[2019-07-05] MEDS: SINGULAIR PO SCH (09:28)
[2019-07-05] MEDS: CELEXA PO SCH (09:28)
[2019-07-05] MEDS: PREDNISONE PO SCH ×2 (09:29→21:52)
[2019-07-05] MEDS ORDERED: ZITHROMAX PO ONE (12:23)
[2019-07-05] MEDS: ZYPREXA PO SCH (21:52)
[2019-07-06] MEDS: VENTOLIN HFA INH SCH ×4 (03:11→15:29)
[2019-07-06] MEDS ORDERED: ZITHROMAX PO SCH (09:00)
[2019-07-06] MEDS: PREDNISONE PO SCH (09:45)
[2019-07-06] MEDS: SINGULAIR PO SCH (09:45)
[2019-07-06] MEDS: CELEXA PO SCH (09:45)
[2019-07-06 13:32] VITALS: BP 115/61
--- NOTE | 2019-07-06 13:52 | DISCHARGE SUMMARY ---
ADMISSION DATE: 07/03/2019 DISCHARGE DATE: 07/06/2019 DISCHARGE DIAGNOSIS: Acute asthma exacerbation and bronchitis. He was a rule out Coronavirus. HOSPITAL COURSE: This is a 33-year-old male with psychiatric issues, bipolar, sounds like bipolar with schizophrenia, possibly schizoaffective. In any case, he came in with shortness of breath, a cough, and some hypoxia. I do believe he smokes. He was treated with medications which include IV steroids and breathing treatments. He was being ruled out for COVID though he refused labs. It sounds like sometimes he refused some of his medications. COVID testing was negative. Flu was negative. At the time of discharge his saturations were 94% to 100% on room air, his wheezing had improved, and he was felt stable for discharge although he did not want to necessarily be discharged. In any case, a urine drug screen was also attempted to be collected but he refused that. So, we will discharge him on steroids and azithromycin and make sure he has an albuterol inhaler. DISCHARGE MEDICATIONS: As follows: Zyprexa 2.5 mg nightly at bedtime, Celexa 40 mg daily, doxycycline 100 mg p.o. b.i.d. for 7 days, Medrol Dosepak, Singulair 10 mg daily, and Ventolin every 4 hours. DISCHARGE TIME: Greater than 30 minutes. cc: Mannie Villarreal MD
== END 2019-07-06 17:00 | disposition home or self-care (01) | DRG 203 ==
LOC: P.ED 15:06 → SUATTDRO 19:29 → P.MEDSURG 19:29
PROVIDERS: ATTEND Internal Medicine